=== PATIENT | male | born 1995 | race Caucasian/White ===

== ENCOUNTER 2024-08-25 16:56 | Emergency (ER) | payer SELFPAY ==
[2024-08-25 17:10] VITALS: BP 172/95
[2024-08-25 21:11] VITALS: BP 146/89
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
== END 2024-08-25 21:13 | disposition home or self-care (01) ==
LOC: EMR 16:56
PROVIDERS: EMERGENCY PHYSICIAN Emergency Medicine
DX: S06.0XAA Concussion with loss of consciousness status unknown, initial encounter (principal); V43.52XA Car driver injured in collision with other type car in traffic accident, initial encounter; R51.9 Headache, unspecified
CPT/HCPCS: 99284; 70450